=== PATIENT | female | born 1965 | race Caucasian/White ===

== ENCOUNTER 2016-04-20 07:56 | Day surgery (SDC) | payer BC ==
[2016-04-20] MEDS ORDERED: Dextrose 5%-Lactated Ringers 1,000 ML IV SCH (08:30)
[2016-04-20] MEDS ORDERED: Glycopyrrolate 0.2 MG/ML 2 ML SYRINGE IVPUSH ONE (09:00)
[2016-04-20] MEDS ORDERED: Propofol 200 MG/20 ML SDV ONE ×2 (10:36→10:56)
[2016-04-20] MEDS ORDERED: fentaNYL 100 MCG/2 ML SDV ONE (10:36)
[2016-04-20] MEDS ORDERED: Midazolam 1 MG/ML 2 ML SDV ONE (10:36)
[2016-04-20] MEDS ORDERED: Ondansetron 4 MG/2 ML SDV ONE (10:37)
[2016-04-20 12:06] VITALS: BP 136/83
--- NOTE | 2016-04-22 17:34 | OR ---
DATE OF PROCEDURE: 04/20/2016 PREOPERATIVE DIAGNOSES: 1. History of Starr's esophagus. 2. Indication for colon screening. POSTOPERATIVE DIAGNOSES: 1. History of Starr's esophagus with minimal inflammation at the esophagogastric junction. 2. Mild antral gastritis. 3. Normal screening colonoscopy. OPERATIVE PROCEDURE: 1. Esophagogastroduodenoscopy:. a. Biopsy of esophagogastric junction for histologic evaluation. b. Biopsies of antrum for CLOtest. 2. Flexible colonoscopy. ANESTHESIA: IV sedation. INDICATION FOR PROCEDURE: This is a 51-year-old with a known history of Starr's esophagus. She also has indications for screening colonoscopy at this time. Plan is to proceed with upper and lower endoscopy with biopsies as indicated. Potential risks including bleeding and perforation were discussed, and the patient wishes to proceed. DETAILS OF PROCEDURE: The patient was taken to the operating room and placed in a left lateral decubitus position. IV sedation was administered, after which the GI endoscope was passed orally through the length of the esophagus, into the stomach with retroflexion view of the fundus, thereafter through the pyloric channel and into the proximal duodenum. The hypopharynx, larynx, upper esophageal sphincter, and esophageal body were unremarkable. At the EG junction, a small hiatal hernia was present. There was some upward extension of the gastroesophageal junction mucosal line with minimal if any gross inflammation. There was no stricturing or gross evidence of neoplasia. Within the stomach, there was some mild inflammation in the antrum, but otherwise was negative, and the pyloric channel and duodenum at the junction of third and fourth portions were unremarkable. At this point, biopsies were obtained from the antrum and sent for CLOtest for H. pylori. Multiple biopsies were obtained from the esophagogastric junction, sent for histologic evaluation. Minimal bleeding from the biopsy sites was seen and the procedure then concluded. Attention was taken to the screening colonoscopy. The initial digital rectal exam was performed and it was unremarkable. The scope was then passed into the rectum with retroflexion revealing uncomplicated hemorrhoidal columns. The scope was easily then passed to the level of the cecum. The prep was fairly good with there only being a small amount of liquid stool present to that level, no abnormalities were noted. Specifically, no areas of colitis, no diverticula, and no polyps or other signs of neoplasia. The scope was then withdrawn with the above findings reconfirmed and the procedure was then concluded. Recommendation would be to continue the present medication management of the reflux, specifically omeprazole 20 mg b.i.d. and a followup endoscopy assuming no dysplasia seen on today's biopsies, it would be in 2 years. Next, screening colonoscopy should be in 10 years. Jensen Mejia MD /[id number]
== END 2016-04-20 12:30 | disposition home or self-care (01) ==
LOC: JP.SDS 07:56
PROVIDERS: ATTEND Surgery
DX: Z12.11 Encounter for screening for malignant neoplasm of colon (principal); K29.50 Unspecified chronic gastritis without bleeding; K22.70 Barrett's esophagus without dysplasia; Z88.2 Allergy status to sulfonamides
CPT/HCPCS: 43239; 45378; 87081; J2250; J2405; J2704; J3010; J7042; 88305

== ENCOUNTER 2017-05-25 09:12 | Emergency (ER) | payer BC ==
[2017-05-25 09:22] VITALS: BP 190/86
--- NOTE | 2017-05-25 09:48 | EDM.PDOC ---
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 She did not have a headache and she does not have a history of migraine headaches. This lasted about 1/2 hour and has completely cleared at this time. Onset: Today, Sudden Duration: Minutes: Location: Reports: Head, Other ( visual difficulty) Associated Symptoms: Reports: Other - Related Data Allergies Allergy/AdvReac Type Severity Reaction Status Date / Time Sulfa (Sulfonamide Allergy Other Verified 05/25/17 09:22 Antibiotics) Home Meds: Home Meds Ibuprofen 400 mg PO ASDIRECTED PRN 04/22/14 [History] Levonorgestrel [Mirena] 1 each IY ASDIRECTED 04/22/14 [History] Omeprazole [Prilosec] 20 mg PO DAILY 04/22/14 [History] Fluticasone Propionate [Flonase Allergy Relief] 2 spray NS DAILY PRN 04/18/16 [ History] Biotin 10 mg PO DAILY 04/20/16 [History] Calcium Carbonate [Calcium] 1,200 mg PO DAILY 04/20/16 [History] Cyanocobalamin (Vitamin B-12) [Vitamin B12] 5,000 mcg PO DAILY 04/20/16 [History ] Ergocalciferol (Vitamin D2) [Vitamin D] 1,600 unit PO DAILY 04/20/16 [History] Joseline 500 mg PO DAILY 04/20/16 [History] Loratadine 10 mg PO DAILY 04/20/16 [History] [place]-3 Fatty Acids [Fish Oil] 1,200 mg PO DAILY 04/20/16 [History] Turmeric Root Extract [Turmeric] 500 mg PO DAILY 04/20/16 [History] Vitamin E 1,000 units PO DAILY 04/20/16 [History] Past Medical History HEENT History: Reports: Allergic Rhinitis, Impaired Vision Cardiovascular History: Reports: Hypertension Gastrointestinal History: Reports: Cholelithiasis, GERD [employer]MING [employer] BLOCKER History: Reports: Endocrine/Metabolic History: Reports: Obesity/BMI 30+ - Infectious Disease History Infectious Disease History: Reports: Chicken Pox - Past Surgical History HEENT Surgical History: Reports: Other (See Below) Cardiovascular Surgical History: Reports: None GI Surgical History: Reports: Cholecystectomy, Colonoscopy, EGD Female Surgical History: Reports: Cystectomy Social & Family History - Tobacco Use Smoking Status *Q: Unknown Ever Smoked Years of Tobacco use: 20 Packs/Tins Daily: 1 Used Tobacco, but Quit: Yes Month/Year Tobacco Last Used: February Second Hand Smoke Exposure: No - Caffeine Use Caffeine Use: Reports: Tea - Alcohol Use Days Per Week of Alcohol Use: 4 Number of Drinks Per Day: 1 Total Drinks Per Week: 4 - Recreational Drug Use Recreational Drug Use: No ED ROS ENT - Review of Systems Review Of Systems: See Below Constitutional: Reports: No Symptoms HEENT: Reports: Vision Change Respiratory: Reports: No Symptoms Cardiovascular: Reports: No Symptoms Endocrine: Reports: No Symptoms GI/Abdominal: Reports: No Symptoms : Reports: No Symptoms Musculoskeletal: Reports: No Symptoms Skin: Reports: No Symptoms ED EXAM, ENT - Physical Exam Exam: See Below Text/Narrative:: pt arrived with a history of an irregular lite around everything she looked at. This episode lasted for 1 /2 hr. It has now cleared and she is back to normal. She does not have a history of migraine headaches. Exam Limited By: No Limitations General Appearance: Alert, No Apparent Distress, Anxious, Other (pupils equal and reactive. Her fundi look good with no sign of hemmorage. ) Ears: Normal TMs Nose: Normal Inspection Mouth/Throat: Normal Inspection Neck: Normal Inspection, Other (no evidence of carotid bruits) Respiratory/Chest: No Respiratory Distress Cardiovascular: Regular Rate, Rhythm GI/Abdominal: Soft, Non-Tender (Female) Exam: Deferred Rectal (Female) Exam: Deferred Back: Normal Inspection Extremities: Normal Inspection Neurological: Alert, Oriented, Normal Cognition, Other (normal strength bilaterally. ) Psychiatric: Normal Affect, Anxious Course - Vital Signs Last Recorded V/S: Last Vital Signs Temp 36.8 C 05/25/17 09:21 Pulse 78 05/25/17 09:21 Resp 16 05/25/17 09:21 BP 190/86 H 05/25/17 09:21 Pulse Ox 100 05/25/17 09:21 - Orders/Labs/Meds Orders: Active Orders 24 hr Category Date Time Status UA W/MICROSCOPIC [URIN] Urgent Lab 05/25/17 09:45 Ordered Labs: Laboratory Tests 05/25/17 05/25/17 05/25/17 Range/Units 09:45 09:54 09:54 WBC 6.3 (4.5-11.0) K/uL RBC 4.54 (3.30-5.50) M/uL Hgb 15.1 H (12.0-15.0) g/dL Hct 42.9 (36.0-48.0) % MCV 95 (80-98) fL MCH 33 H (27-31) pg MCHC 35 (32-36) % Plt Count 222 (150-400) K/uL Neut % (Auto) 56 (36-66) % Lymph % (Auto) 32 (24-44) % [place] % (Auto) 9 H (2-6) % Eos % (Auto) 3 (2-4) % Baso % (Auto) 1 (0-1) % Sodium 141 (140-148) mmol/L Potassium 4.1 (3.6-5.2) mmol/L Chloride 105 (100-108) mmol/L Carbon Dioxide 26 (21-32) mmol/L Anion Gap 10.1 (5.0-14.0) mmol/L BUN 10 (7-18) mg/dL Creatinine 0.8 (0.6-1.0) mg/dL Est Cr Clr Drug Dosing 71.84 mL/min Estimated GFR (MDRD) > 60 (>60) Glucose 155 H (74-106) mg/dL Calcium 8.4 L (8.5-10.1) mg/dL Total Bilirubin 0.6 (0.2-1.0) mg/dL AST 17 (15-37) U/L ALT 35 (12-78) U/L Alkaline Phosphatase 65 (46-116) U/L Total Protein 6.9 (6.4-8.2) g/dL Albumin 3.9 (3.4-5.0) g/dL Globulin 3.0 (2.3-3.5) g/dL Albumin/Globulin Ratio 1.3 (1.2-2.2) Urine Color Yellow Urine Appearance Clear Urine pH 5.0 (4.5-8.0) Ur Specific [place] 1.005 L (1.008-1.030) Urine Protein Negative (NEGATIVE) mg/dL Urine Glucose (UA) Normal (NEGATIVE) mg/dL Urine Ketones Negative (NEGATIVE) mg/dL Urine Occult Blood Negative (NEGATIVE) Urine Nitrite Negative (NEGATIVE) Urine Bilirubin Negative (NEGATIVE) Urine Urobilinogen Normal (NORMAL) mg/dL Ur Leukocyte Esterase Negative (NEGATIVE) Urine RBC 0-5 (0-5) Urine WBC Not seen (0-5) Ur Epithelial Cells Not seen Amorphous Sediment Rare Urine Bacteria Not seen Urine Mucus Not seen - Re-Assessments/Exams Free Text/Narrative Re-Assessment/Exam: 05/25/17 10:30 pt had a bs of 155 . Other labs were normal. Her bp has come down to 147/90. Her cat scan did not show anything acute. Her symptoms have totally cleared. Departure - Departure Time of Disposition: 10:31 Disposition: Home, Self-Care 01 Condition: Fair Clinical Impression: Visual symptoms, Hypertension - Discharge Information Referrals: Елена Meier PA [Primary Care Provider] - Forms: ED Department Discharge Care Plan Goals: rtc if problems, If pt has recurrent issues recheck with regular Dr. - My Orders Last 24 Hours: My Active Orders 05/25/17 09:45 UA W/MICROSCOPIC [URIN] Urgent - Assessment/Plan Last 24 Hours: My Active Orders 05/25/17 09:45 UA W/MICROSCOPIC [URIN] Urgent
--- NOTE | 2017-05-25 10:18 | CT ---
CT head without contrast Indication: Visual disturbance. Total DLP 760. Findings: No hemorrhage. No subacute territorial infarct. No mass effect or midline shift. 6 mm calci fic density along the anterior falx. Mastoid air cells are clear. Calvarium intact. Impression: 1. No acute intracranial process by CT. 2. Benign-appearing calcification versus calcified meningioma along the anterior falx. Follow-up none mergent MRI with contrast could differentiate between the 2 of these.
== END 2017-05-25 10:56 | disposition home or self-care (01) ==
LOC: JP.ED 09:12
DX: I10 Essential (primary) hypertension (principal); H53.9 Unspecified visual disturbance; Z88.2 Allergy status to sulfonamides; Z79.899 Other long term (current) drug therapy; Z87.891 Personal history of nicotine dependence
CPT/HCPCS: 36415; 70450; 70450-26; 80053; 81001; 85025; 99284-25

== ENCOUNTER 2020-12-15 05:56 | Day surgery (SDC) | payer BC ==
[2020-12-15] MEDS ORDERED: Lactated Ringers 1,000 ML IV SCH (06:30)
[2020-12-15] MEDS ORDERED: Nozin Nasal Sanitizer NASBOTH ONE (06:30)
[2020-12-15] MEDS ORDERED: Bupivacaine 0.5% 50 ML MDV ONE (06:44)
[2020-12-15] MEDS ORDERED: fentaNYL 100 MCG/2 ML SDV ONE (07:11)
[2020-12-15] MEDS ORDERED: Midazolam 1 MG/ML 2 ML SDV ONE (07:11)
[2020-12-15] MEDS ORDERED: Propofol 200 MG/20 ML SDV ONE (07:11)
[2020-12-15] MEDS ORDERED: Lidocaine 0.5% 50 ML SDV ONE (07:12)
[2020-12-15] MEDS ORDERED: ceFAZolin 1 GM in Premix Bag 1 BAG IV ONE (07:30)
[2020-12-15] MEDS ORDERED: Ondansetron 4 MG/2 ML SDV ONE (08:09)
[2020-12-15] MEDS ORDERED: Bupivacaine 0.5% 50 ML MDV INJECT ONE (08:38)
[2020-12-15 10:12] VITALS: BP 150/80; PULSE 51
--- NOTE | 2020-12-16 22:38 | OR ---
DATE OF PROCEDURE: 12/15/2020 SURGEON: Tawanda Medrano MD PREOPERATIVE DIAGNOSIS: Bilateral carpal tunnel syndrome. POSTOPERATIVE DIAGNOSIS: Bilateral carpal tunnel syndrome. PROCEDURES: 1. Right carpal tunnel release. 2. Carpal tunnel injection, left wrist. ANESTHESIA: [place] block with sedation. INDICATIONS: Debora is a 55-year-old female with a history of bilateral carpal tunnel symptoms. Right is slightly worse than the left. She has failed conservative treatment and now presents for right carpal tunnel release and a cortisone injection to the left wrist to provide some temporary relief until she can schedule release on the left. Risks, benefits, and potential complications of the procedure were discussed. PROCEDURE IN DETAIL: After adequate anesthesia was obtained, the left wrist was prepped just adjacent to the palmaris longus at the wrist crease with alcohol. The carpal tunnel was injected with 1 mL of [place] along with 1 mL of 0.5% Marcaine. This went without complication. A small Band-Aid was applied. The right arm was prepped and draped in a sterile fashion. A longitudinal incision was made from the wrist crease distally in line with the 3rd and 4th interspace. Carried down through the subcutaneous tissues and palmar fascia. A self-retaining retractor was placed. The transverse carpal ligament was divided under direct visualization. This was fairly thick and very tight, particularly towards the distal end of the tunnel. A complete release of the ligament was confirmed proximally and distally both by palpation and visualization. The contents of the carpal tunnel revealed no abnormal space-occupying masses. There was some adherent synovitis, which was mild, and a mild hourglass deformity of the median nerve was identified. The wound was irrigated and then closed with a 4-0 nylon in an interrupted mattress fashion. The skin edges were infiltrated with 0.5% Marcaine, and a sterile dressing was applied. The patient tolerated the procedure very well. There were no complications. Taken from the operating room in stable condition. Tawanda Medrano MD /[id number]
== END 2020-12-15 10:13 | disposition home or self-care (01) ==
LOC: JP.SDS 05:56
PROVIDERS: ATTEND Specialist
DX: G56.03 Carpal tunnel syndrome, bilateral upper limbs (principal); I10 Essential (primary) hypertension; E66.9 Obesity, unspecified; E78.5 Hyperlipidemia, unspecified; K21.9 Gastro-esophageal reflux disease without esophagitis; Z90.49 Acquired absence of other specified parts of digestive tract; Z88.2 Allergy status to sulfonamides; Z91.040 Latex allergy status; Z87.891 Personal history of nicotine dependence; Z68.32 Body mass index [BMI] 32.0-32.9, adult
CPT/HCPCS: 20526; 36415; 64721; 80053; 85025; A9270; J0690; J2250; J2405; J2704; J3010; J3490; J7120

== ENCOUNTER 2023-11-14 06:26 | Day surgery (SDC) | payer BC ==
[2023-11-14] MEDS ORDERED: fentaNYL 100 MCG/2 ML SDV ONE (07:13)
[2023-11-14] MEDS ORDERED: Midazolam 1 MG/ML 2 ML SDV ONE (07:13)
[2023-11-14] MEDS ORDERED: Propofol 200 MG/20 ML SDV ONE (07:13)
[2023-11-14] MEDS ORDERED: Lidocaine 0.5% 50 ML SDV ONE (07:16)
[2023-11-14] MEDS: Nozin Nasal Sanitizer NASBOTH ONE (07:25)
[2023-11-14] MEDS: Lactated Ringers 1,000 ML IV SCH (07:26)
[2023-11-14] MEDS ORDERED: ceFAZolin 1 GM in Sodium Chloride 0.9% 50 ML IV ONE (07:30)
[2023-11-14 07:37] LABS: BASOPHILS ABSOLUTE AUTO 0.04 K/uL (0.00-0.10); BASOPHILS PERCENT AUTO 0.7 % (0.1-1.3); EOSINOPHILS ABSOLUTE AUTO 0.36 K/uL (0.00-0.40); EOSINOPHILS PERCENT AUTO 6.5 % (0.0-5.4); HEMATOCRIT 38.4 % (34.3-46.0); HEMOGLOBIN 13.8 g/dL (11.2-15.5); IMMATURE GRAN ABSOLUTE AUTO 0.03 K/uL (0.00-0.23); IMMATURE GRAN PERCENT AUTO 0.5 % (0.0-0.7); LYMPHOCYTES ABSOLUTE AUTO 1.73 K/uL (0.8-3.3); LYMPHOCYTES PERCENT AUTO 31.1 % (11.4-47.7); MEAN CORPUSCULAR HEMOGLOBIN 32.7 pg (31.6-35.5); MEAN CORPUSCULAR HGB CONC 35.9 g/dL (31.6-35.5); NEUTROPHILS PERCENT AUTO 52.2 % (40.0-78.1); PLATELET COUNT,PLT 196 K/uL (130-375); RED BLOOD CELL COUNT 4.22 M/uL (3.77-5.24); WHITE BLOOD CELL COUNT,WBC 5.6 K/uL (3.2-11.0)
[2023-11-14] MEDS: ceFAZolin 1 GM in Premix Bag 1 BAG IV ONE (07:45)
[2023-11-14] MEDS ORDERED: Ondansetron 4 MG/2 ML SDV ONE (07:47)
[2023-11-14 07:59] LABS: A/G RATIO 1.1 (1.2-2.2); ALANINE AMINOTRANSFERASE,ALT 33 U/L (12-78); ALBUMIN 3.6 g/dL (3.4-5.0); ALKALINE PHOSPHATASE 63 U/L (46-116); ANION GAP 11.2 mmol/L (5.0-14.0); ASPARTATE AMNIOTRANSFERASE,AST 16 U/L (15-37); BILIRUBIN TOTAL 0.6 mg/dL (0.2-1.0); BLOOD UREA NITROGEN,BUN 10 mg/dL (7-18); CARBON DIOXIDE,CO2 26 mmol/L (21-32); CHLORIDE,CL 105 mmol/L (100-108); CREATININE 0.7 mg/dL (0.6-1.0); EST CRCL DRUG DOSING (CG) 76.57 mL/min; ESTIMATED GFR 101 mL/min (>60); GLUCOSE RANDOM 104 mg/dL (74-106); POTASSIUM,K 4.2 mmol/L (3.6-5.2); PROTEIN TOTAL,TP 6.9 g/dL (6.4-8.2); SODIUM,NA 142 mmol/L (140-148)
[2023-11-14] MEDS: Bupivacaine 0.5% 30 ML SDV ONE (08:12)
[2023-11-14 09:16] VITALS: BP 148/69; PULSE 51
== END 2023-11-14 09:48 | disposition home or self-care (01) ==
LOC: JP.SDS 06:26
PROVIDERS: ATTEND Specialist
DX: G56.02 Carpal tunnel syndrome, left upper limb (principal); I10 Essential (primary) hypertension; K21.9 Gastro-esophageal reflux disease without esophagitis
CPT/HCPCS: 01810; 36415; 64721; 80053; 85025; A9270; J0665; J0689; J2250; J2405; J2704; J3010; J7120